=== PATIENT | female | born 1955 | race Two or more races ===

== ENCOUNTER 2020-01-04 13:07 | Outpatient (CLI) | payer OTHER ==
[~2020-01-04] VITALS: Ht 154.9 cm; Wt 56.7 kg
[2020-01-04] MEDS ORDERED: COZAAR100 MG (17:36)
[2020-01-04] MEDS ORDERED: SIMVASTATIN5 MG (17:36)
[2020-01-04] MEDS ORDERED: EVISTA60 MG (17:37)
== END 2020-01-04 13:40 | disposition home or self-care (01) ==
LOC: OFIC 805 13:07
PROVIDERS: ATTEND Otolaryngology Otology & Neurotology
DX: H81.11 Benign paroxysmal vertigo, right ear (principal)